=== PATIENT | male | born 1955 | race Caucasian/White ===

== ENCOUNTER 2023-06-10 15:59 | Outpatient (CLI) | payer BC, SELFPAY ==
[2023-06-10 18:11] LABS: PSA Diagnostic* 7.49 ng/mL (0.10-4.00)
--- NOTE | 2023-06-11 10:10 | ONC.NURNOTE ---
Dx: Prostate cancer
--- NOTE | 2023-06-12 10:47 | URNOTE ---
Request received for authorization for Leuprolide Acetate (Eligard) 7.5 mg per month ([id number]). Prior authorization is approved per [facility] [place] Auth#[id number] from 06/11/23 to 06/10/24.
[2023-06-13 00:49] LABS: Testosterone, Adult Male <3 ng/dL (300-720)
== END 2023-06-10 16:00 | disposition home or self-care (01) ==
LOC: MRI 16:03
PROVIDERS: PCP Internal Medicine; Visit Provider Internal Medicine
DX: C61 Malignant neoplasm of prostate (principal)
CPT/HCPCS: 36415; 72195; 84153; 84403

== ENCOUNTER 2023-06-25 14:10 | Outpatient (CLI) | payer MEDICARE, SELFPAY ==
[2023-06-25 16:51] LABS: Appearance Urine Clear (Clear); Bilirubin Urine Negative (Negative); Blood Urine Negative (Negative); Color Urine Yellow (Yellow); Glucose Urine Negative (Negative); Ketones Urine Negative (Negative); Leukocyte Esterase Urine Negative (Negative); Nitrite Urine Negative (Negative); Protein Urine Negative (Negative); Specific Gravity Urine <= 1.005 (1.000-1.030); Urobilinogen Urine 0.2 (0.2-1.0)
[2023-06-25 17:12] LABS: RBC Urine 0-2 (0-2); Squamous Epithelial Cell Urine Few (None-Few); WBC Urine 0-2 (0-5)
== END 2023-06-25 14:11 | disposition home or self-care (01) ==
PROVIDERS: Visit Provider Internal Medicine
DX: R30.0 Dysuria (principal)
CPT/HCPCS: 81001; 87086

== ENCOUNTER 2023-07-21 09:00 | Outpatient (RCR) | payer MEDICARE, SELFPAY ==
[2023-06-20 09:30] VITALS: BP 133/77; PULSE 74; RESP 16; TEMP 36.3; O2SAT 99
[2023-06-20] MEDS: LEUPROLIDE ACETATE 7.5 MG (SQ) SYRINGE SUBCUT (09:54)
--- NOTE | 2023-07-03 13:53 | URNOTE ---
Per [email or web address], Cindy (J9217) 22.5mg will be covered under original authorization from [facility]. Auth #[id number]. 06/11/2023-06/10/2024
[2023-07-21 09:01] VITALS: BP 132/84; PULSE 83; RESP 16; TEMP 36.7; O2SAT 100
[2023-07-21] MEDS: LEUPROLIDE ACETATE 22.5 MG (SQ) SYRINGE SUBCUT (09:07)
== END 2023-12-17 23:59 | disposition home or self-care (01) ==
LOC: CCIC 09:00
PROVIDERS: Referring Provider Internal Medicine; Visit Provider Internal Medicine
DX: C61 Malignant neoplasm of prostate (principal)
CPT/HCPCS: 96401; J9217